=== PATIENT | female | born 1995 | race Caucasian/White ===

== ENCOUNTER → 2018-03-18 | Outpatient (CLI) | payer BC ==
--- NOTE | 2018-03-18 11:35 | US ---
EXAMINATION TYPE: US abdomen complete DATE OF EXAM: 03/18/2018 COMPARISON: NONE CLINICAL HISTORY: 22-year-old female R10.9 ABD PAIN. LLQ pain TECHNIQUE: Multiple sonographic images of the abdomen are obtained. FINDINGS: EXAM MEASUREMENTS: Liver Length: 11.2 cm Gallbladder Wall: 0.3 cm CBD: 0.5 cm Spleen: 11.2 cm Right Kidney: 9.6 x 5.4 x 6.1 cm Left Kidney: 10.7 x 5.8 x 5.6 cm Traffic Operator notes: Technically difficult study due to extensive midline bowel gas. Pancreas: limit vis due to midline bowel gas Liver: Homogeneous appearance without focal lesion. Gallbladder: No abnormal distention, wall thickening, or pericholecystic fluid. No stones seen Evidence for sonographic Klein's sign: No CBD: wnl Spleen: wnl Right Kidney: No hydronephrosis. Left Kidney: No hydronephrosis. Upper IVC: wnl Abd Aorta: wnl IMPRESSION: Suboptimal visualization of the pancreas. Otherwise, unremarkable sonographic examination of the abdo men.
--- NOTE | 2018-03-18 12:19 | US ---
EXAMINATION TYPE: US pelvic complete DATE OF EXAM: 03/18/2018 COMPARISON: NONE CLINICAL HISTORY: 22-year-old female R10.9 ABD PAIN. LLQ pain TECHNIQUE: Transabdominal (TA). Date of LMP: 03/03/2018 FINDINGS: EXAM MEASUREMENTS: Uterus: Anteverted measuring 7.5 x 2.7 x 5.5 cm Endometrial Stripe: 1.1 cm, within normal limits. Right Ovary: 4.8 x 2.5 x 3.8 cm mildly enlarged for a volume of 24.1 mL. Follicular changes present. Left Ovary: 3.1 x 2.3 x 3.9 cm, normal size at 14.7 mL. Senior System Operator notes: Technologist wanted to perform TV to evaluate free fluid, patient declined at this time. 1. Uterus: Anteverted wnl 2. Endometrium: wnl 3. Right Ovary: wnl 4. Left Ovary: wnl 5. Bilateral Adnexa: wnl 6. Posterior cul-de-sac: mild to moderate amount of free fluid with some internal debris. IMPRESSION: 1. Mildly prominent right ovary with follicular change. 2. Mild to moderate cul-de-sac free fluid. 3. Normal thickness endometrial stripe (1.1 cm).
== END | disposition home or self-care (01) ==
LOC: RADUSWWP 10:56
PROVIDERS: ATTEND Family Medicine
DX: R18.8 Other ascites (principal)
CPT/HCPCS: 76700; 76856